=== PATIENT | female | born 1995 | race Two or more races ===

== ENCOUNTER 2017-07-07 02:00 | Emergency (ER) | payer OTHER ==
[~2017-07-07] VITALS: Ht 175.3 cm; Wt 90.1 kg
[2017-07-07 02:18] VITALS: BP 126/83
== END 2017-07-07 05:11 | disposition home or self-care (01) ==
LOC: ED 05:03
DX: R05 Cough (principal); M94.0 Chondrocostal junction syndrome [Tietze]; J02.8 Acute pharyngitis due to other specified organisms; B97.89 Other viral agents as the cause of diseases classified elsewhere; Z88.0 Allergy status to penicillin
CPT/HCPCS: 71046; 87081; 87880; 93005; 99285